=== PATIENT | female | born 1995 | race Caucasian/White ===

== ENCOUNTER 2024-06-01 22:43 | Emergency (ER) | payer OTHER ==
[~2024-06-01] VITALS: Ht 154.9 cm; Wt 113.6 kg
[2024-06-01] MEDS: normal saline 1000ml 1,000 ML IV ONE (23:50)
[2024-06-01] MEDS: ketorolac trometh 30MG/ML vial 30 MG/ML VIAL IV ONE (23:50)
[2024-06-02 00:07] LABS: BILIRUBIN,URINE NEGATIVE (Neg); CLARITY,URINE SLIGHTLY CLOUDY (Clear); COLOR,URINE YELLOW (Yellow); GLUCOSE, URINE NEGATIVE (Neg); KETONES,URINE NEGATIVE (Neg); LEUKOCYTE ESTERASE ,URINE NEGATIVE (Neg); NITRITES, URINE NEGATIVE (Neg); OCCULT BLOOD,URINE NEGATIVE (Neg); PH,URINE 6.5 (4.8-8.0); PROTEIN,URINE NEGATIVE (Neg); URINE HCG NEGATIVE (NEG)
[2024-06-02 00:08] LABS: BASOPHILS % (AUTO) 0.4 % (0-1); EOSINOPHILS # (AUTO) 0.3 X10'3 (0-0.9); EOSINOPHILS % (AUTO) 2.6 % (0-6); HEMATOCRIT 36.4 % (35.0-45.0); HEMOGLOBIN 12.3 g/dl (12.0-16.0); LYMPHOCYTES # (AUTO) 3.5 X10'3 (1.1-4.8); LYMPHOCYTES % (AUTO) 31.1 % (21-51); MEAN CORPUSCULAR HGB CONC 33.7 g/dL (33.0-36.5); MEAN PLATELET VOLUME 8.6 FL (7.4-10.4); MONOCYTES # (AUTO) 0.6 X10'3 (0-0.9); MONOCYTES % (AUTO) 5.6 % (2-12); NEUTROPHILS # (AUTO) 6.7 X10'3 (1.8-7.7); NEUTROPHILS % (AUTO) 60.3 % (42-75); PLATELET COUNT 372 X10'3 (140-440); RED BLOOD COUNT 3.96 X10'6 (4.20-5.60); RED CELL DISTRIBUTION WIDTH 13.8 % (11.5-14.5); WHITE BLOOD COUNT 11.1 X10'3 (4.5-11.0)
[2024-06-02 00:16] LABS: UA COLLECTION TYPE NON-SPECIFIED
[2024-06-02 00:18] LABS: BACTERIA,URINE 1+ /HPF (Neg); MUCUS STRANDS FEW /LPF (Neg); RBC,URINE 0-2 /HPF (0-2); RENAL CELLS, URINE FEW /HPF; SQUAMOUS EPITHELIAL CELL,UR MODERATE /LPF (FEW); TRANSITIONAL EPI CELLS,URINE FEW /HPF
[2024-06-02 00:18] LABS: ALANINE AMINOTRANSFERASE 30 U/L (12-78); ALBUMIN 3.8 G/DL (3.4-5.0); ANION GAP 8 (8-16); ASPARTATE AMINO TRANSFERASE 12 U/L (10-37); BILIRUBIN,TOTAL 0.4 MG/DL (0.1-1.0); BLOOD UREA NITROGEN 11 MG/DL (7-18); BUN/CREATININE RATIO 12.2 (10.0-20.0); CALCIUM 9.4 MG/DL (8.5-10.1); CHLORIDE 105 MMOL/L (99-107); GLUCOSE 113 MG/DL (70-104); POTASSIUM 3.5 MMOL/L (3.5-5.1); SODIUM 141 MMOL/L (135-145); TOTAL CARBON DIOXIDE 27.7 MMOL/L (24-32); TOTAL PROTEIN 7.5 G/DL (6.4-8.2); eCRCL 71 ML/MIN; eGFR 75 ML/MIN
[2024-06-02 00:19] LABS: ALKALINE PHOSPHATASE 58 IU/L (46-116)
[2024-06-02 00:32] LABS: URINE AMPHETAMINE SCREEN NEGATIVE (Neg); URINE BARBITUATE SCREEN NEGATIVE (Neg); URINE BENZODIAZEPINES SCREEN NEGATIVE (Neg); URINE CANNABINOID SCREEN NEGATIVE (Neg); URINE COCAINE SCREEN NEGATIVE (Neg); URINE METHADONE SCREEN NEGATIVE (Neg); URINE OPIATE SCREEN NEGATIVE (Neg); URINE PHENCYCLIDINE SCREEN NEGATIVE (Neg)
[2024-06-02] MEDS ORDERED: iohexol 300mg/ml 100ml inj. ONE (00:37)
[2024-06-02] MEDS: morphine 4 MG/ML inj SYRINge IV ONE (00:37)
[2024-06-02 01:00] VITALS: TEMP 98.2
[2024-06-02] MEDS: HYDROmorphone 1 mg/ml syringe IV ONE (01:22)
[2024-06-02 02:31] VITALS: BP 148/89; PULSE 84; RESP 17; O2SAT 99
== END 2024-06-02 02:32 | disposition home or self-care (01) ==
LOC: ER 22:44
DX: R10.32 Left lower quadrant pain (principal); Z91.018 Allergy to other foods
CPT/HCPCS: 36415; 74177; 80053; 80305; 81001; 81025; 85025; 87088; 96361; 96374; 96375; 99285; J1170; J1885; J2270; J7030; Q9967; 81003

== ENCOUNTER 2025-05-14 09:50 | Emergency (ER) | payer SELFPAY ==
[~2025-05-14] VITALS: Ht 154.9 cm; Wt 122.8 kg
[2025-05-14 09:58] VITALS: BP 151/85; PULSE 107; RESP 18; TEMP 98; O2SAT 95
--- NOTE | 2025-05-14 10:06 | Physician Documentation ---
History of Present Illness ~ Chief Complaint: Ankle pain Stated Complaint: ANKLE PAIN Time Seen by MD: 10:08 Primary Medical Doctor: NONE HPI 30-year-old female reports to the emergency department for evaluation of her right foot after twisting her ankle while walking out of work last night. Reports she took Tylenol at approximately 0 two this morning with minimal resolution to the pain. Tetanus witin 5 years: Yes Medication Reconciliation Allergies: Coded Allergies: banana (Verified Allergy, Unknown, 05/14/25) Review of Systems ROS As stated above in the HPI, otherwise all systems are reviewed and negative. Physical Exam Vital Signs: Temperature: 98.0, Heart Rate: 107, Respiratory Rate: 18, BP: 151/85, Pulse Oximetry: 95, Weight: 122.800 Oxygen Flow Rate: 0 Physical Exam VITALS: Reviewed and as above. GENERAL: Alert, no apparent distress. MUSCULOSKELETAL No deformities, examination to the right foot and ankle, mild swelling and reduced range of motion due to pain. SKIN: Warm and dry, no rash NEURO: Oriented x4, No motor or sensory deficit PSYCH: Normal mood and affect, no agitation Progress Results/Orders Results/Orders Orders - [facility] [place] MEDICAL REFERRAL COORDINATOR Foot, Complete (3vw Min) (05/14/25 10:06) Ankle, Complete(3vw Min) (05/14/25 10:06) Completed Orders - [place] [place] MEDICAL REFERRAL COORDINATOR Foot, Complete (3vw Min) (05/14/25 10:06) Ankle, Complete(3vw Min) (05/14/25 10:06) Vital Signs 05/14/25 09:58 Temp 98.0 Pulse 107 Resp 18 B/P (MAP) 151/85 Pulse Ox 95 O2 Flow Rate 0 Medical Decision Making Findings Patient presents with right ankle and foot pain. Given history, exam and workup patient likely has bruising and soft tissue injury secondary to a sprain. Based on examination and radiologic imaging I have low suspicion for fracture, dislocation, significant ligamentous injury, septic arthritis, gout flare, new autoimmune arthropathy, or gonococcal arthropathy. Patient will follow up with primary care provider. Return to the emergency department if there are any worsening of current symptoms or any additional concerning symptoms present. Departure Disposition: 01 HOME / SELF CARE / HOMELESS Impression: Primary Impression: Sprain of ankle Condition: Stable Discharge Instructions: Ankle Pain, Ankle Sprain Additional Instructions: You were evaluated for right-sided ankle injuries sustained when exiting work. Examination and radiologic diagnostic show that you have no fractures or significant injury at this time. There maybe bruising and soft tissue injury consistent with a sprain. He has follow up with your primary care provider. Ibuprofen rest elevation ice as needed. Please return to the emergency department if you have any worsening of current symptoms or any additional concerning symptoms that we discussed here today. Departure Forms: Excuse form Work or School Excused From: Work Excuse beginning now through the following date: May 13, 2025 May Return but still avoid physical Activity from now until: May 16, 2025 May Return to full physical activity as of: May 16, 2025 Additional Instructions: Please excuse this patient from work starting May 13 through May 16. Referrals: NO PRIMARY CARE PROVIDER (PCP) Education Educated: Patient Educated regarding: treatment, need for follow up Signature Scribe Signature: A Attestation: Scribed for Flory [place] by ROBB Sheth . 05/16/25 12:44 [place] [place] May 14, 2025 10:06
--- NOTE | 2025-05-14 10:40 | RADIOLOGY REPORT ---
CLINICAL INDICATION: pain to theright foot ankle TECHNIQUE: DI FOOT, COMPLETE (3VW MIN), DI ANKLE, COMPLETE(3VW MIN) Comparison: None FINDINGS/IMPRESSION: : There is no evidence of acute fracture or dislocation. Soft tissues are unremarkable. Degenerative spurring of the calcaneus.
== END 2025-05-14 11:10 | disposition home or self-care (01) ==
LOC: ER 09:50
DX: S93.401A Sprain of unspecified ligament of right ankle, initial encounter (principal); X58.XXXA Exposure to other specified factors, initial encounter; Y93.01 Activity, walking, marching and hiking; Y92.89 Other specified places as the place of occurrence of the external cause; Y99.8 Other external cause status
CPT/HCPCS: 73610; 73630; 99284; A6449